=== PATIENT | female | born 1965 | race Caucasian/White ===

== ENCOUNTER 2024-08-09 19:33 | Emergency (ER) | payer OTHER ==
[2024-08-09 19:49] VITALS: BMI 33.9
[2024-08-09] MEDS ORDERED: ACETAMINOPHEN 325 MG TABLET (FP) ONE (20:35)
[2024-08-09] MEDS: ACETAMINOPHEN 500 MG TABLET (FP) PO ONE (20:42)
[2024-08-09 20:49] LABS: URINE APPEARANCE CLEAR; URINE BILIRUBIN NEGATIVE (NEGATIVE); URINE COLOR YELLOW; URINE GLUCOSE (UA) TRACE (NEGATIVE); URINE KETONE NEGATIVE (NEGATIVE); URINE LEUK ESTERASE NEGATIVE (NEGATIVE); URINE NITRITE NEGATIVE (NEGATIVE); URINE PROTEIN NEGATIVE (NEGATIVE); URINE UROBILINOGEN 0.2 mg/dL (0.2-1.0)
[2024-08-09 22:29] LABS: HIV INTERPRETATION NEGATIVE (NEGATIVE)
[2024-08-09] MEDS ORDERED: SULFAMETHOXAZOLE/TRIMETHOPRIM 800MG/160MG D.S. TABLET ONE (23:54)
[2024-08-10] MEDS: SULFAMETHOXAZOLE/TRIMETHOPRIM 800MG/160MG D.S. TABLET PO ONE (00:03)
[2024-08-10 00:04] VITALS: BP 120/77; PULSE 78; RESP 16; TEMP 97.9
== END 2024-08-10 00:04 | disposition home or self-care (01) ==
LOC: JER 19:33
DX: R10.30 Lower abdominal pain, unspecified (principal); R30.0 Dysuria; N39.0 Urinary tract infection, site not specified; R35.0 Frequency of micturition; R39.15 Urgency of urination
CPT/HCPCS: 36415; 76830-TC; 81003; 86803; 87086; 87389; 99284-25